=== PATIENT | female | born 1980 ===

== ENCOUNTER → 2017-04-03 | Outpatient (CLI) | payer MEDICARE, BC ==
--- NOTE | 2017-04-03 22:08 | US ---
EXAMINATION TYPE: US transvaginal DATE OF EXAM: 04/03/2017 COMPARISON: NONE CLINICAL HISTORY: 36-year-old female N85.2 Hypertrophy of uterus. Tubal ligation, csections, patient states uterus felt enlarged per doctor TECHNIQUE: Transabdominal sonographic images of the pelvis were acquired. Date of LMP: 03/20/2017, FINDINGS: Uterus: Anteverted measuring 8.2 x 5.1 x 4.2 cm. The myometrium shows mild diffuse heterogeneity. Ce rvical nabothian cysts are present. scar is vaguely seen. Endometrial Stripe: 1.0 cm, within normal limits. Right Ovary: 2.9 x 2.0 x 1.8 cm Left Ovary: 3.2 x 2.2 x 2.2 cm Follicular change on both sides. Ovaries are normal size. No evident adnexal abnormality or cul-de-sac free fluid. IMPRESSION: 1. Heterogeneous myometrium could reflect a small fibroid change or adenomyosis. 2. Normal follicular change in both ovaries.
== END | disposition home or self-care (01) ==
LOC: RADUSWWP 15:55
PROVIDERS: ATTEND Family Medicine
DX: N85.8 Other specified noninflammatory disorders of uterus (principal)
CPT/HCPCS: 76830

== ENCOUNTER 2017-12-20 15:39 | Emergency (ER) | payer MEDICARE, BC ==
[2017-12-20 15:45] VITALS: TEMP 98.1
--- NOTE | 2017-12-20 16:06 | ED ---
General Adult HPI - General Chief complaint: Headache Stated complaint: Headache Time Seen by Provider: 12/20/17 15:54 Source: patient, RN notes reviewed Mode of arrival: ambulatory Limitations: no limitations - History of Present Illness Initial comments: Patient is a pleasant 37-year-old female presenting to the emergency Department with complaints of headache. Onset of symptoms was 3 days ago. Headache has been constant since she noticed that when she woke. Headache is more on the right posterior side. Headache is similar to previous headaches. Patient does get headaches similar to this several times per week however usually only lasts a day or less. This time headache has been persistent for 3 days. Patient has seen her doctor for this. Patient has also seen ophthalmology. Patient has been told she has borderline high blood pressure, not high enough to start medication yet. No nausea vomiting. No confusion or new weakness. 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 No photophobia. No paresthesias or loss of sensation. - Related Data Home Medications Medication Instructions Recorded Confirmed No Known Home Medications 12/20/17 12/20/17 Allergies Allergy/AdvReac Type Severity Reaction Status Date / Time No Known Allergies Allergy Verified 12/20/17 16:57 Review of Systems ROS Statement: Those systems with pertinent positive or pertinent negative responses have been documented in the HPI. ROS Other: All systems not noted in ROS Statement are negative. Constitutional: Denies: fever Eyes: Denies: eye pain ENT: Denies: ear pain Respiratory: Denies: cough Cardiovascular: Denies: chest pain Endocrine: Denies: fatigue Gastrointestinal: Denies: abdominal pain Genitourinary: Denies: dysuria Musculoskeletal: Denies: back pain Skin: Denies: rash Neurological: Reports: headache. Denies: weakness, numbness, paresthesias, confusion Past Medical History Past Medical History: No Reported History Additional Past Medical History / Comment(s): Headache History of Any Multi-Drug Resistant Organisms: None Reported Past Surgical History: Section Additional Past Surgical History / Comment(s): Wrist, ankle Past Psychological History: No Psychological Hx Reported Smoking Status: Never smoker Past Alcohol Use History: None Reported Past Drug Use History: None Reported General Exam Limitations: no limitations General appearance: alert, in no apparent distress Head exam: Present: atraumatic, normocephalic Eye exam: Present: normal appearance, PERRL, EOMI. Absent: nystagmus ENT exam: Present: normal oropharynx Neck exam: Present: normal inspection, other (No vertebral tenderness). Absent : meningismus Respiratory exam: Present: normal lung sounds bilaterally Cardiovascular Exam: Present: regular rate, normal rhythm GI/Abdominal exam: Present: soft. 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 is chronic and unchanged), RLE: 5, LLE : 5 Eye Response: (4) open spontaneously Motor Response: (6) obeys commands Verbal Response: (5) oriented Psychiatric exam: Present: normal affect, normal mood Skin exam: Present: normal color Course Vital Signs 12/20/17 12/20/17 15:42 17:02 Temperature 98.1 F Pulse Rate 79 87 Respiratory 18 16 Rate Blood Pressure 152/93 144/96 O2 Sat by Pulse 98 97 Oximetry Medical Decision Making - Medical Decision Making Patient reevaluated and updated - Radiology Data Radiology results: report reviewed (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 Please check blood pressure at home and provided list for primary care physician. Return for fevers, weakness, confusion, visual change, worsening or changing symptoms or other concerns Is patient prescribed a controlled substance at d/c from ED?: No Referrals: Prabha Boss MD [Primary Care Provider] - 1-2 days Time of Disposition: 17:13
--- NOTE | 2017-12-20 16:39 | CT ---
EXAMINATION TYPE: CT brain wo con DATE OF EXAM: 12/20/2017 COMPARISON: None HISTORY: Hypertension and headache. CT DLP: 1196.4 mGycm. Automated Exposure Control for Dose Reduction was Utilized. TECHNIQUE: CT scan of the head is performed without contrast. FINDINGS: There is a 2.2 x 1.5 cm area of fluid density adjacent to the frontal horn right lateral ve ntricle consistent with porencephalic cyst. The ventricles are otherwise unremarkable. There is no mi dline shift. There is no sign of intracranial hemorrhage. Calvarium is intact. There is also some enc ephalomalacia focally in the right posterior parietal lobe that measures 1.5 cm consistent with old i nfarct. The calvarium is intact. 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 No acute intracranial abnormality.
[2017-12-20] MEDS ORDERED: KETOROLAC 60 MG/2 ML VIAL IM STA (17:12)
[2017-12-20 17:20] VITALS: BP 136/90; PULSE 72; RESP 18
== END 2017-12-20 17:22 | disposition home or self-care (01) ==
LOC: EC 15:39
DX: R51 Headache (principal); R53.1 Weakness; Z86.69 Personal history of other diseases of the nervous system and sense organs
CPT/HCPCS: 70450; 99284; 96372; J1885